=== PATIENT | female | born 2000 | race African-American/Black ===

== ENCOUNTER 2020-07-19 16:41 | Emergency (ER) | payer MEDICAID, OTHER ==
[~2020-07-19] VITALS: Ht 185.4 cm; Wt 97.5 kg
[2020-07-19 16:43] VITALS: BP 96/60
== END 2020-07-19 19:14 | disposition left against medical advice (07) ==
LOC: ER 16:41
DX: R07.89 Other chest pain (principal); Z53.21 Procedure and treatment not carried out due to patient leaving prior to being seen by health care provider; V43.52XA Car driver injured in collision with other type car in traffic accident, initial encounter; Y93.89 Activity, other specified; Y92.89 Other specified places as the place of occurrence of the external cause; Y99.8 Other external cause status
CPT/HCPCS: 93005